=== PATIENT | male | born 1990 | race Caucasian/White ===

== ENCOUNTER 2020-01-13 19:29 | Emergency (ER) | payer BC ==
[~2020-01-13] VITALS: Ht 175.3 cm; Wt 74.8 kg
[2020-01-13 19:35] VITALS: BP_SYST 129
--- NOTE | 2020-01-13 19:43 | NUR ---
Patient to ER bed 1 to gown for evaluation. Side rails up. Report given to Melissa BELTRAN.
--- NOTE | 2020-01-13 19:44 | NUR ---
PT AAO AND AMBULATORY REPORTING LEFT EAR PAIN FOR THE PAST THREE WEEKS. PT REPORTS THAT HE WENT TO AN ENT SPECIALIST 2 WEEKS AGO AND NOTHING WAS FURTHER WAS DONE. PT COMPLAINS THAT PAIN IS WORSE AND THAT SOUNDS ARE MUFFLED. PT IS REPORTED AT 9/10 PAIN SCALE.
--- NOTE | 2020-01-13 20:15 | NUR ---
ER Dr. GASTELUM at bedside examining patient.
[2020-01-13] MEDS ORDERED: ACETAMINOPHEN 500 MG TABLET ONE (20:36)
--- NOTE | 2020-01-13 20:40 | NUR ---
Patient given written and verbal discharge instructions and verbalizes understanding. DR. ORIANA ORTEGA MD discussed with patient the results and treatment provided. Patient in stable condition. ID arm band removed. IV catheter removed intact and dressing applied, no active bleeding. Patient educated on pain management and to follow up with PMD. Pain Scale 2/10. Opportunity for questions provided and answered.
[2020-01-13] MEDS ORDERED: ACETAMINOPHEN 500 MG TABLET PO ONE (20:45)
== END 2020-01-13 20:40 | disposition home or self-care (01) ==
LOC: SED 19:29
DX: H92.02 Otalgia, left ear (principal)
CPT/HCPCS: 99282

== ENCOUNTER 2020-03-25 01:26 | Emergency (ER) | payer BC ==
[~2020-03-25] VITALS: Ht 172.7 cm; Wt 74.8 kg
[2020-03-25 01:35] VITALS: BP_SYST 142
[2020-03-25] MEDS ORDERED: ONDANSETRON HCL 4 MG/2 ML VIAL IVP ONE (02:00)
[2020-03-25] MEDS ORDERED: MORPHINE 2 MG/ML INJ. SYRINGE IVP ONE ×2 (02:00→03:15)
[2020-03-25] MEDS ORDERED: NACL 0.9% 1,000 ML IV ONE (02:00)
[2020-03-25] MEDS ORDERED: PANTOPRAZOLE SODIUM 40 MG/VIAL (PROTONIX) IVP ONE (02:00)
[2020-03-25 02:50] LABS: BASOPHILS % (AUTO) 1.1 % (0.0-2.0); EOSINOPHILS # (AUTO) 0.2 K/uL (0.0-0.4); EOSINOPHILS % (AUTO) 4.7 % (0.0-4.0); HEMATOCRIT 41.4 % (36-54); HEMOGLOBIN 14.3 g/dL (14.0-18.0); LYMPHOCYTES # (AUTO) 1.1 K/uL (1.0-5.5); LYMPHOCYTES % (AUTO) 27.1 % (20.5-51.5); MEAN CORPUSCULAR HEMOGLOBIN 30 pg (27-31); MEAN CORPUSCULAR HGB CONC 35 % (32-36); MEAN CORPUSCULAR VOLUME 87 fL (79.0-98.0); MONOCYTES # (AUTO) 0.4 K/uL (0.0-1.0); MONOCYTES % (AUTO) 8.5 % (1.7-9.3); NEUTROPHILS # (AUTO) 2.4 K/uL (1.8-7.7); NEUTROPHILS % (AUTO) 58.6 % (40.0-70.0); PLATELET COUNT (AUTO) 168 K/uL (130-430); RED BLOOD CELL COUNT(AUTO) 4.75 MIL/uL (4.2-6.2); RED CELL DISTRIBUTION WIDTH 13.5 % (9.0-15.0); WHITE BLOOD COUNT (AUTO) 4.1 K/uL (4.8-10.8)
[2020-03-25 02:58] LABS: CREATININE 0.82 mg/dL (0.55-1.30); POTASSIUM 3.7 mmol/L (3.5-5.1)
[2020-03-25 02:59] LABS: BILIRUBIN,URINE NEGATIVE (NEGATIVE); BLOOD, URINE NEGATIVE (NEGATIVE); CLARITY/URINE CLEAR (CLEAR); COLOR,URINE YELLOW (YELLOW); GLUCOSE,URINE NEGATIVE (NEGATIVE); KETONES,URINE NEGATIVE (NEGATIVE); LEUKOCYTE ESTERASE ,URINE NEGATIVE (NEGATIVE); NITRITE, URINE NEGATIVE (NEGATIVE); PH,URINE 5.5 (5.0-8.0); PROTEIN URINE NEGATIVE (NEGATIVE); UROBILINOGEN,URINE 0.2 (0.2-1.0)
[2020-03-25 03:02] LABS: ALBUMIN 4.2 g/dL (3.4-4.8); TOTAL BILIRUBIN 0.7 mg/dL (0.0-1.0)
[2020-03-25] MEDS ORDERED: MORPHINE 2 MG/ML INJ. SYRINGE ONE (03:19)
[2020-03-25 03:53] VITALS: BP_SYST 142
== END 2020-03-25 03:53 | disposition home or self-care (01) ==
LOC: SED 01:26
DX: R10.32 Left lower quadrant pain (principal)
CPT/HCPCS: 36415; 74176; 76376; 80053; 81003; 83690; 85025; 96361; 96374; 96375; 96376; 99284; C9113; J2270; J2405; J7030

== ENCOUNTER 2020-12-15 04:51 | Emergency (ER) | payer BC ==
[~2020-12-15] VITALS: Ht 172.7 cm; Wt 77.1 kg
[2020-12-15 05:00] VITALS: BP_SYST 129
--- NOTE | 2020-12-15 05:12 | NUR ---
Patient to ER bed 3 to gown for evaluation. Side rails up. Report given to Itz BELTRAN.
--- NOTE | 2020-12-15 05:33 | NUR ---
PT ARRIVED IN ER WITH COMPLAINSTS OF RIGHT BIG TOE PAIN. PT HAD A TELESCOPE HEAD FALL ON HIS RIGHT BIG TOE YESTERDAY AT 2200. 11/23 PAIN. HE TOOK 2 TYLENOLS AT 0300 FOR PAIN RELIEF. NO SUCCESS. A&OX4.
--- NOTE | 2020-12-15 05:35 | NUR ---
ER at bedside examining patient.
[2020-12-15] MEDS ORDERED: IBUPROFEN 800 MG TABLET PO ONE (05:45)
--- NOTE | 2020-12-15 05:50 | NUR ---
XR AT BEDSIDE
[2020-12-15] MEDS ORDERED: IBUP-1971 PO (06:02)
--- NOTE | 2020-12-15 06:13 | NUR ---
DR GASTELUM PERFORMED A TREPANATION ON THE RIGHT BIG TOE, PRESSURE DRESSING APPLIED. FLAT SOLE SHOE GIVEN.
[2020-12-15 06:19] VITALS: BP_SYST 129
--- NOTE | 2020-12-15 06:19 | NUR ---
Patient given written and verbal discharge instructions and verbalizes understanding. ER MD discussed with patient the results and treatment provided. Patient in stable condition. ID arm band removed. Rx of MOTRIN given. Patient educated on pain management and to follow up with PMD. Pain Scale 2/10. Opportunity for questions provided and answered. Medication side effect fact sheet provided.
== END 2020-12-15 06:19 | disposition home or self-care (01) ==
LOC: SED 04:51
DX: S90.111A Contusion of right great toe without damage to nail, initial encounter (principal); W20.8XXA Other cause of strike by thrown, projected or falling object, initial encounter; Y93.89 Activity, other specified; Y92.89 Other specified places as the place of occurrence of the external cause; Y99.8 Other external cause status
CPT/HCPCS: 99283; 99284

== ENCOUNTER 2022-11-19 18:28 | Emergency (ER) | payer BC ==
[~2022-11-19] VITALS: Ht 170.2 cm; Wt 81.6 kg
[~2022-11-19 18:28] MED LIST: IBUP-1971 PO
[2022-11-19 18:56] VITALS: BP_SYST 123; PULSE 81; RESP 16; TEMP 97.6; O2SAT 97
[2022-11-19] MEDS ORDERED: OMEP-268 PO (18:56)
[2022-11-19] MEDS ORDERED: FAMOTIDINE 20 MG TABLET PO ONE (19:15)
[2022-11-19] MEDS ORDERED: MAG-AL HYDROX/SIMETH 30 ML UDC PO ONE (19:15)
[2022-11-19 19:46] LABS: BASOPHILS % (AUTO) 0.7 % (0.0-2.0); EOSINOPHILS # (AUTO) 0.1 K/uL (0.0-0.4); EOSINOPHILS % (AUTO) 2.1 % (0.0-4.0); HEMATOCRIT 43.6 % (36-54); HEMOGLOBIN 14.9 g/dL (14.0-18.0); LYMPHOCYTES # (AUTO) 1.4 K/uL (1.0-5.5); LYMPHOCYTES % (AUTO) 26.5 % (20.5-51.5); MEAN CORPUSCULAR HEMOGLOBIN 29 pg (27-31); MEAN CORPUSCULAR HGB CONC 34 % (32-36); MEAN CORPUSCULAR VOLUME 85 fL (79.0-98.0); MONOCYTES # (AUTO) 0.4 K/uL (0.0-1.0); MONOCYTES % (AUTO) 8.3 % (1.7-9.3); NEUTROPHILS # (AUTO) 3.3 K/uL (1.8-7.7); NEUTROPHILS % (AUTO) 62.4 % (40.0-70.0); PLATELET COUNT (AUTO) 212 K/uL (130-430); RED CELL DISTRIBUTION WIDTH 13.3 % (9.0-15.0); WHITE BLOOD COUNT (AUTO) 5.3 K/uL (4.8-10.8)
[2022-11-19 20:01] LABS: ALANINE AMINOTRANSFERASE 50 U/L (12-78); ANION GAP 5 (5-15); ASPARTATE AMINOTRANSFERASE 19 U/L (10-37); CARBON DIOXIDE 31 mmol/L (23-29); CHLORIDE 101 mmol/L (98-107); CREATININE 1.07 mg/dL (0.55-1.30); GFR AFRICAN AMERICAN 103 mL/min (>90); GFR NON AFRICAN-AMERICAN 85 mL/min (>90); GLUCOSE 78 mg/dL (74-106); SODIUM SERUM 137 mmol/L (136-145); TOTAL BILIRUBIN 0.5 mg/dL (0.0-1.0); TOTAL PROTEIN, SERUM 7.8 g/dL (6.4-8.3); UREA NITROGEN, BLOOD 16 mg/dL (8-21)
[2022-11-19] MEDS ORDERED: KETOROLAC TROMETHAMINE 30 MG VIAL ONE (21:42)
[2022-11-19] MEDS ORDERED: KETOROLAC TROMETHAMINE 15 MG VIAL IM ONE (21:45)
[2022-11-19] MEDS ORDERED: SUCR1TAB2 PO (22:25)
[2022-11-19] MEDS ORDERED: ANT30 PO (22:25)
[2022-11-19 22:43] VITALS: BP_SYST 104; PULSE 85; RESP 18; TEMP 98.6; O2SAT 96
== END 2022-11-19 22:45 | disposition home or self-care (01) ==
LOC: SED 18:28
DX: R07.9 Chest pain, unspecified (principal); Z79.899 Other long term (current) drug therapy
CPT/HCPCS: 99285; 71045; 80053; 85025; 85379; 84484; 36415; 93005; 96372; J1885